=== PATIENT | male | born 1970 | race Caucasian/White ===

== ENCOUNTER 2016-08-01 13:01 | Emergency (ER) | payer OTHER ==
[~2016-08-01] VITALS: Ht 167.6 cm; Wt 54.4 kg
[2016-08-01 13:20] LABS: BASO % 0 % (0-3); EOS % 0 % (0-3); HEMATOCRIT 42.1 % (39.0-53.0); LYMPH # 2.7 x10^3/uL (1.0-4.8); LYMPH % 8 % (24-48); MEAN CORPUSCULAR HEMOGLOBIN 32 pg (25-35); MEAN CORPUSCULAR HGB CONC 33 g/dL (31-37); MEAN CORPUSCULAR VOLUME 96 fL (79-100); MONO % 6 % (0-9); NEUT % 87 % (31-73); PLATELET COUNT 447 x10^3/uL (140-400); RED BLOOD COUNT 4.39 x10^6/uL (4.30-5.70); RED CELL DISTRIBUTION WIDTH 13.2 % (11.5-14.5); WHITE BLOOD COUNT 35.2 x10^3/uL (4.0-11.0)
[2016-08-01 13:30] LABS: ANION GAP 3 (6-14); BLOOD UREA NITROGEN 11 mg/dL (8-26); BUN/CREATININE RATIO 55 (6-20); CALCIUM 10.1 mg/dL (8.5-10.1); CARBON DIOXIDE 37 mmol/L (21-32); CHLORIDE 94 mmol/L (98-107); CREATININE 0.2 mg/dL (0.7-1.3); GFR > 300.0; GLUCOSE 185 mg/dL (70-99); POTASSIUM 4.1 mmol/L (3.5-5.1); SODIUM 134 mmol/L (136-145)
--- NOTE | 2016-08-01 13:31 | RAD ---
Portable chest, 08/01/2016: History: Hypoxia, cough The heart size and pulmonary vascularity are normal. No pulmonary infiltrates are seen. There is no evidence of pleural fluid. IMPRESSION: No acute cardiopulmonary abnormality is detected.
[2016-08-01 13:36] LABS: ALBUMIN 3.7 g/dL (3.4-5.0); ALBUMIN/GLOBULIN RATIO 0.8 (1.0-1.7); ALK PHOS 134 U/L (46-116); ALT (SGPT) 34 U/L (16-63); AST (SGOT) 24 U/L (15-37); TOTAL BILIRUBIN 0.7 mg/dL (0.2-1.0); TOTAL PROTEIN 8.6 g/dL (6.4-8.2)
[2016-08-01 13:37] LABS: HCO3 ABG 31 mmol/L (21-28); PCO2 ABG 55 mmHg (35-46); PH ABG 7.37 (7.35-7.45); PO2 ABG 71 mmHg (75-108); SAT O2 ABG 94 % (92-99)
[2016-08-01 14:06] LABS: % EOS 1 % (0-5)
[2016-08-01 14:07] LABS: TOXIC GRANULATION MOD; TOXIC VACUOLATION SLIGHT
[2016-08-01 14:08] LABS: PLT ESTIMATE INCREASED (ADEQUATE)
--- NOTE | 2016-08-01 14:13 | PHYS DOC ---
Past Medical History Past Medical History: Other Additional Past Medical Histor: ALS Past Surgical History: Other Additional Past Surgical Histo: right knee; peg tube Alcohol Use: None Drug Use: None Adult General Chief Complaint Chief Complaint: SHORTNESS OF BREATH HPI HPI Patient is a 46 year old MALE who presents with shortness of breath. Pt has ALS, planned tracheostomy next week at the [facility] for his or sitting ALS. Patient's had a cough, believes he had a mucous plug that is having difficulty to get out causing him to feel increased shortness of breath. EMS brings in the patient on his home CPAP but is not attached to oxygen with O2 sats in the 60s. Patient is reluctant to have intubation performed, denies known fevers, would like to be transferred to the [facility] where he was planning to go but EMS stated that the patient was unstable to go there. Denies any associated pain with the shortness of breath. Patient is communicating through his who reads his face as patient is nonverbal at this time. Review of Systems Review of Systems Constitutional: Denies fever or chills [] Eyes: Denies redness, or eye pain [] HENT: Denies nasal congestion or sore throat [] Respiratory: Per history of present illness Cardiovascular: Denies chest pain GI: Denies abdominal pain, nausea, vomiting, bloody stools or diarrhea [] : Denies dysuria or hematuria [] Musculoskeletal: Denies back pain or joint pain [] Integument: Denies rash or skin lesions [] Neurologic: Denies headache, focal weakness or sensory changes [] Current Medications Current Medications Current Medications Medications (Trade) Dose Ordered Sig/Bree Start Time Stop Time Status Last Admin Dose Admin Piperacillin Sod/ Tazobactam Sod 4.5 gm/Sodium Chloride 100 ml @ 200 mls/hr 1X ONCE 08/01/16 14:30 08/01/16 14:59 Allergies Allergies Allergies Coded Allergies Type Severity Reaction Last Updated Verified No Known Drug Allergies 08/01/16 No Physical Exam Physical Exam Constitutional: thin, anxious, tachypnic HENT: Normocephalic, atraumatic, bilateral external ears normal, oropharynx moist, no oral exudates, nose normal. [] Eyes: PERRLA, EOMI, conjunctiva normal, no discharge. [] Neck: Normal range of motion, no tenderness, supple, no stridor. [] Cardiovascular:Heart rate tachycardia with regular rhythm, no murmur [] Lungs & Thorax: Bilateral breath sounds , poor air movement, no appreciable crackles or wheeze Abdomen: soft, no tenderness, no masses, no pulsatile masses. feeding tube Skin: Warm, dry, no erythema, no rash. [] Back: No tenderness, no CVA tenderness. [] Extremities: No tenderness, no edema. [] Neurologic: Alert, no focal deficits noted. [] Current Patient Data Vital Signs Vital Signs Date Time Temp Pulse Resp B/P (MAP) Pulse Ox O2 Delivery O2 Flow Rate FiO2 08/01/16 13:01 97.9 123 20 180/107 (131) 69 BiPAP/CPAP 97.9 Lab Values Laboratory Tests Test 08/01/16 13:10 08/01/16 13:35 White Blood Count 35.2 x10^3/uL (4.0-11.0) H Red Blood Count 4.39 x10^6/uL (4.30-5.70) Hemoglobin 14.0 g/dL (13.0-17.5) Hematocrit 42.1 % (39.0-53.0) Mean Corpuscular Volume 96 fL (79-100) Mean Corpuscular Hemoglobin 32 pg (25-35) Mean Corpuscular Hemoglobin Concent 33 g/dL (31-37) Red Cell Distribution Width 13.2 % (11.5-14.5) Platelet Count 447 x10^3/uL (140-400) H Neutrophils (%) (Auto) 87 % (31-73) H Lymphocytes (%) (Auto) 8 % (24-48) L Monocytes (%) (Auto) 6 % (0-9) Eosinophils (%) (Auto) 0 % (0-3) Basophils (%) (Auto) 0 % (0-3) Neutrophils # (Auto) 30.5 x10^3uL (1.8-7.7) H Lymphocytes # (Auto) 2.7 x10^3/uL (1.0-4.8) Monocytes # (Auto) 1.9 x10^3/uL (0.0-1.1) H Eosinophils # (Auto) 0.0 x10^3/uL (0.0-0.7) Basophils # (Auto) 0.0 x10^3/uL (0.0-0.2) Segmented Neutrophils % 90 % (35-66) H Band Neutrophils % 3 % (0-9) Lymphocytes % 5 % (24-48) L Monocytes % 1 % (0-10) Eosinophils % 1 % (0-5) Toxic Granulation Mod Toxic Vacuolation Slight Platelet Estimate Increased (ADEQUATE) Sodium Level 134 mmol/L (136-145) L Potassium Level 4.1 mmol/L (3.5-5.1) Chloride Level 94 mmol/L (98-107) L Carbon Dioxide Level 37 mmol/L (21-32) H Anion Gap 3 (6-14) L Blood Urea Nitrogen 11 mg/dL (8-26) Creatinine 0.2 mg/dL (0.7-1.3) L Estimated GFR (Cockcroft-Gault) > 300.0 BUN/Creatinine Ratio 55 (6-20) H Glucose Level 185 mg/dL (70-99) H Calcium Level 10.1 mg/dL (8.5-10.1) Total Bilirubin 0.7 mg/dL (0.2-1.0) Aspartate Amino Transferase (AST) 24 U/L (15-37) Alanine Aminotransferase (ALT) 34 U/L (16-63) Alkaline Phosphatase 134 U/L (46-116) H Total Protein 8.6 g/dL (6.4-8.2) H Albumin 3.7 g/dL (3.4-5.0) Albumin/Globulin Ratio 0.8 (1.0-1.7) L O2 Saturation 94 % (92-99) Arterial Blood pH 7.37 (7.35-7.45) Arterial Blood pCO2 at Patient Temp 55 mmHg (35-46) H Arterial Blood pO2 at Patient Temp 71 mmHg (75-108) L Arterial Blood HCO3 31 mmol/L (21-28) H Arterial Blood Base Excess 4 mmol/L (-3-3) H FiO2 21.0 Laboratory Tests 08/01/16 13:10 Laboratory Tests 08/01/16 13:10 EKG EKG 138 bpm, sinus tach, normal axis, normal intervals, no ST elevation or depression, nonischemic T waves, interpreted by me [] Radiology/Procedures Radiology/Procedures Chest x-ray: Portable chest, 08/01/2016: History: Hypoxia, cough The heart size and pulmonary vascularity are normal. No pulmonary infiltrates are seen. There is no evidence of pleural fluid. IMPRESSION: No acute cardiopulmonary abnormality is detected. Course & Med Decision Making Course & Med Decision Making Pertinent Labs and Imaging studies reviewed. (See chart for details) Patient was hypoxic upon arrival, tachypnea. In the course of moving into the bed, his O2 sats came up into the 90s, he . Marked comfortable. He was continuing to be on CPAP on room air, did not want the patient placed on oxygen. His chest x-ray does not show clear pneumonia, his white count of 35,000 , baseline unknown. I did give the patient IV Zosyn, blood cultures are pending. Had initially discussed intubation with the family, he preferred not to if possible. As he was appearing more stable, plan to transfer the patient per [facility] I contacted Dr. Patel of the ER, he accepted the patient as an ER to ER transfer. total critical care time: 35 minutes Dragon Disclaimer Dragon Disclaimer This electronic medical record was generated, in whole or in part, using a voice recognition dictation system. Departure Departure Impression: Primary Impression: Acute and chronic respiratory failure Additional Impressions: Leukocytosis ALS (amyotrophic lateral sclerosis) Disposition: 05 TRANSFER OTHER Condition: GUARDED Referrals: UNKNOWN PCP NAME (PCP) Problem Qualifiers CHRISTINA MCINTYRE MD Aug 01, 2016 14:12
[2016-08-01] MEDS ORDERED: PIPERACILLIN/TAZOBACTAM 4.5 GM in IV NORMAL SALINE 100ML 100 ML IV ONE (14:30)
[2016-08-01 14:45] VITALS: BP 164/104
--- NOTE | 2016-08-01 16:08 | EKG ---
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
== END 2016-08-01 15:15 | disposition short-term general hospital (02) ==
LOC: ER 13:01
DX: J96.21 Acute and chronic respiratory failure with hypoxia (principal); G12.21 Amyotrophic lateral sclerosis; D72.829 Elevated white blood cell count, unspecified
CPT/HCPCS: 36415; 36600; 71010; 80053; 82805; 85007; 85027; 87040; 87205; 93005; 96365; 99291; J2543